=== PATIENT | female | born 1960 | race Caucasian/White ===

== ENCOUNTER → 2017-07-31 | Outpatient (CLI) | payer BC | LOC: MAMMO 07-30 14:37 | DX: Z12.31 Encounter for screening mammogram for malignant neoplasm of breast (principal) | CPT/HCPCS: G0202 ==

== ENCOUNTER → 2018-08-01 | Outpatient (CLI) | payer BC | LOC: MAMMO 08:23 | DX: Z12.31 Encounter for screening mammogram for malignant neoplasm of breast (principal) ==

== ENCOUNTER → 2019-08-12 | Outpatient (CLI) | payer BC | LOC: MAMMO 13:30 | DX: Z12.31 Encounter for screening mammogram for malignant neoplasm of breast (principal) ==

== ENCOUNTER → 2020-08-17 | Outpatient (CLI) | payer BC | LOC: MAMMO 13:01 | DX: Z12.31 Encounter for screening mammogram for malignant neoplasm of breast (principal) ==

== ENCOUNTER → 2021-08-23 | Outpatient (CLI) | payer BC | LOC: MAMMO 14:59 | DX: Z12.31 Encounter for screening mammogram for malignant neoplasm of breast (principal) ==

== ENCOUNTER → 2022-08-23 | Outpatient (CLI) | payer BC | LOC: MAMMO 15:13 | DX: Z12.31 Encounter for screening mammogram for malignant neoplasm of breast (principal) ==

== ENCOUNTER → 2024-08-04 | Outpatient (CLI) | payer MEDICARE | LOC: MAMMO 13:46 | DX: Z12.31 Encounter for screening mammogram for malignant neoplasm of breast (principal) ==